=== PATIENT | male | born 1995 | race Two or more races ===

== ENCOUNTER 2023-02-10 22:31 | Emergency (ER) | payer OTHER ==
[~2023-02-10] VITALS: Ht 182.9 cm; Wt 90.7 kg
[2023-02-11 00:15] VITALS: BP 145/82
== END 2023-02-11 00:17 | disposition home or self-care (01) ==
LOC: ER 22:34
DX: R07.9 Chest pain, unspecified (principal)
CPT/HCPCS: 71045-TC